=== PATIENT | female | born 1940 | race Caucasian/White ===

== ENCOUNTER → 2023-12-02 12:11 | Outpatient (REF) | payer MEDICARE, BC, SELFPAY ==
[2023-12-02 13:52] LABS: Free T4 0.78 ng/dl (0.78-2.19)
== END ==
LOC: REG 12:11
PROVIDERS: ATTENDING PHYSICIAN Internal Medicine Endocrinology, Diabetes & Metabolism
DX: E03.9 Hypothyroidism, unspecified (principal)
CPT/HCPCS: 36415; 84439; 84443

== ENCOUNTER → 2024-03-30 11:30 | Outpatient (REF) | payer MEDICARE, BC, SELFPAY ==
[2024-03-30 13:57] LABS: Free T4 0.77 ng/dl (0.78-2.19)
== END ==
LOC: REG 11:30
PROVIDERS: ATTENDING PHYSICIAN Internal Medicine Endocrinology, Diabetes & Metabolism; FAMILY PHYSICIAN Family Medicine
DX: E03.9 Hypothyroidism, unspecified (principal)
CPT/HCPCS: 36415; 84439; 84443

== ENCOUNTER → 2024-09-22 11:22 | Outpatient (REF) | payer MEDICARE, BC, SELFPAY ==
[2024-09-22 14:07] LABS: HDL Cholesterol 94 mg/dl; LDL Cholesterol, Calculated 105 mg/dl; Total Cholesterol 218 mg/dl (50-199); Triglyceride 95 mg/dl (10-149); Very Low Density Lipoprotein 19 mg/dl (0-30)
[2024-09-22 14:18] LABS: Free T4 0.75 ng/dl (0.78-2.19)
== END ==
LOC: REG 11:22
PROVIDERS: ATTENDING PHYSICIAN Internal Medicine Endocrinology, Diabetes & Metabolism
DX: E03.9 Hypothyroidism, unspecified (principal)
CPT/HCPCS: 36415; 80061; 84439; 84443

== ENCOUNTER → 2025-03-29 10:16 | Outpatient (REF) | payer MEDICARE, BC, SELFPAY ==
[2025-03-29 12:36] LABS: ALT (SGPT) 17 U/L (0-35); AST (SGOT) 24 U/L (14-36); Albumin 4.4 g/dl (3.5-5.0); Alkaline Phosphatase 100 U/L (38-126); Blood Urea Nitrogen 30 mg/dl (7-17); Calcium 9.7 mg/dl (8.4-10.2); Carbon Dioxide 29 mmol/L (22-30); Chloride 106 mmol/L (98-107); Glucose 100 mg/dl (70-99); HDL Cholesterol 84 mg/dl; LDL Cholesterol, Calculated 114 mg/dl; Sodium 141 mmol/L (135-145); Total Bilirubin 1.1 mg/dl (0.2-1.3); Total Cholesterol 214 mg/dl (50-199); Total Protein 7.3 g/dl (6.3-8.2); Triglyceride 82 mg/dl (10-149); Very Low Density Lipoprotein 16 mg/dl (0-30); eGFR 49.86
[2025-03-29 12:47] LABS: Free T4 0.87 ng/dl (0.78-2.19)
== END ==
LOC: REG 10:16
PROVIDERS: ATTENDING PHYSICIAN Internal Medicine Endocrinology, Diabetes & Metabolism; FAMILY PHYSICIAN Family Medicine
DX: E03.9 Hypothyroidism, unspecified (principal)
CPT/HCPCS: 36415; 80053; 80061; 84439; 84443

== ENCOUNTER → 2025-05-24 11:15 | Outpatient (REF) | payer MEDICARE, BC, SELFPAY ==
[2025-05-24 12:38] LABS: TSH 28.60 uIU/ml (0.47-4.68)
== END ==
LOC: REG 11:15
PROVIDERS: ATTENDING PHYSICIAN Internal Medicine Endocrinology, Diabetes & Metabolism; FAMILY PHYSICIAN Family Medicine
DX: E03.9 Hypothyroidism, unspecified (principal)
CPT/HCPCS: 36415; 84439; 84443

== ENCOUNTER 2025-08-08 14:45 | Emergency (ER) | payer MEDICARE, BC, SELFPAY ==
[2025-08-08 14:49] VITALS: BP 177/80
[2025-08-08 15:15] LABS: Hematocrit 34.7 % (37.0-47.0); Hemoglobin 11.4 g/dL (12.0-16.0); Mean Corp Hgb Conc. 32.9 g/dL (33.0-37.0); Mean Corpuscular Volume 94.8 fL (81.0-99.0); Nucleated Red Blood Cells % 0 %; Platelet Count 182 10^3/uL (130-400); Red Cell Dist. Width 11.8 % (11.5-14.5)
[2025-08-08 15:37] LABS: ALT (SGPT) 20 U/L (0-35); AST (SGOT) 32 U/L (14-36); Albumin 4.3 g/dl (3.5-5.0); Alkaline Phosphatase 71 U/L (38-126); Blood Urea Nitrogen 27 mg/dl (7-17); Calcium 9.1 mg/dl (8.4-10.2); Carbon Dioxide 28 mmol/L (22-30); Chloride 104 mmol/L (98-107); Glucose 133 mg/dl (70-99); Potassium 4.1 mmol/L (3.5-5.1); Sodium 138 mmol/L (135-145); Total Protein 7.0 g/dl (6.3-8.2); eGFR 55.90
--- NOTE | 2025-08-08 17:56 | ED.GENMED ---
History of Present Illness
General
Chief Complaint: Fainting/Passed Out
Source: patient
Exam Limitations: none
Time Seen by Provider: 08/08/25 17:43
History of Present Illness
History of Present Illness:
85 year old female presents after syncopal episode she sustained today. She was standing in the heat cutting her grandchild's hair for over half hour started to feel lightheaded her daughter guided her to that she let her down and then she passed
out. She woke up with a significant headache and nausea. There is no chest pain. No shortness of breath. No vomiting. She denies any vision change. She has had syncopal episodes in the past without any significant findings on workup by
cardiology. She has been told she has history of vasovagal events.
Past History
Past History
ED Past Medical History: Other (arthritis)
ED Past Surgical History: None
Social History
Tobacco: Non-smoker
Alcohol: None
Drug: None
Personal:
Living: alone
Family History
Family History: Negative CAD or Sudden
Phy Exam
Physical Exam
Physical Exam:
General: Well-appearing female no acute respiratory distress
HEENT: Normal cephalic atraumatic pupils equal round reactive to light
Heart: RRR, no murmus
Lungs: CTA bilaterally
Abd: Soft, nontender
Neurologic exam: Alert and oriented no facial asymmetry good strength to the upper and lower extremities conversing appropriately
Skin is warm no rash
Course
Orders/Labs/Results
Orders:
Orders
08/08/25 14:52
ECG [Electrocardiogram (*1)] Urgent
Reason for Study: Syncope
EKG- Treatment ONCE
08/08/25 14:59
Complete Blood Count/With Diff Urgent
Comprehensive Metabolic Panel Urgent
Free T4 Urgent
TSH Reflex To Free T4 Urgent
08/08/25 17:54
Cardiac Monitoring- Treatment ONCE
0.9% Sodium Chloride 1000 ml [Nss] 1,000 ml IV BOLUS
08/08/25 17:55
CT Head W/o Iv Contrast Urgent
Comment:
Reason For Exam: headache, syncope
Abnormal Lab Results
08/08/25
14:59
RBC 3.66 L 10^6/uL
(4.20-5.40)
Hgb 11.4 L g/dL
(12.0-16.0)
Hct 34.7 L %
(37.0-47.0)
MCH 31.1 H pg
(27.0-31.0)
MCHC 32.9 L g/dL
(33.0-37.0)
BUN 27 H mg/dl
(7-17)
Glucose 133 H mg/dl
(70-99)
TSH (Reflex) 55.50 H uIU/ml
(0.47-4.68)
08/08/25 14:59
08/08/25 14:59
Vital Signs
Initial and Last Documented VS:
Initial Vital Signs
Temp Pulse Resp BP Pulse Ox
97.7 F 67 18 177/80 99
08/08/25 14:49 08/08/25 14:49 08/08/25 14:49 08/08/25 14:49 08/08/25 14:49
Last Documented Vital Signs
Temp Pulse Resp BP Pulse Ox
97.7 F 77 17 164/73 100
08/08/25 14:49 08/08/25 18:30 08/08/25 18:30 08/08/25 18:12 08/08/25 18:30
MDM/Problems Addressed
Differential Diagnosis Includes:
Patient had syncopal episode today but woke up with significant headache and nausea. Since waiting in the waiting room her headache and nausea has improved but she still feels off. EKG through triage shows sinus rhythm without ischemic changes.
Labs showed BUN of 27 suggest possible volume depletion or dehydration. Hemoglobin is 11.4. [address] on monitor. Given the headache and nausea associate with syncope CT head was ordered
*Pulse Oximetry
SaO2: 99
Oxygen Mode of Delivery: Room air
Patient hypoxic: no
*Critical Care Note
Total Time (30-74mins, 75-104mins- exclusive of procedures): Not Applicable
Update Note
Update Note:
Patient appears well feels better upon reassessment labs reviewed without significant finding. CT of the head normal. She has been ambulatory without any lightheadedness chest pain and no arrhythmias on the monitor. I suspect heat exhaustion
mixed with vasovagal episode. Stable for discharge
ED Attending Note
-
Portions of this chart may have been created with voice recognition software.� Occasional wrong word or��sound alike� substitutions may have occurred due to the inherent limitations of voice recognition software.
Discharge Plan
Departure
Patient Disposition: Home (Routine Discharge)
Date of Disposition: 08/08/25
Time of Disposition: 19:45
Patient with high blood pressure during this ER visit?: No
Discharge Problem:
Syncope
Instructions: Syncope (Fainting) (DC)
Prescriptions:
No Action
cyclobenzaprine 10 MG tablet
5 mg PO HS PRN (Reason: neck pain, spasm) Qty: 8 0RF
Referrals:
Dennis Frank DO [Family Provider, Family Practice]
Activity Restrictions/Additional Instructions:
Stay hydrated. Return if worse otherwise follow-up with your doctor
Interventions
Interventions:
*Risk Screen - Suicide Last Done: 08/08/25 14:49
*General Assessment Last Done: 08/08/25 14:49
*Neglect/Abuse Screening Last Done: 08/08/25 18:45
*ED COVID-19 Vaccine History Last Done: 08/08/25 18:45
*ED Influenza Vaccine History Last Done: 08/08/25 18:45
ED- Cardiac Assessment Last Done: 08/08/25 18:45
ED- Neurological Assessment Last Done: 08/08/25 18:45
Discharge Date and Time
Print Language: BRUNEIAN
[2025-08-08 18:12] VITALS: BP 164/73
[2025-08-08] MEDS: NSS 1000 IV (18:29)
== END 2025-08-08 19:59 | disposition home or self-care (01) ==
LOC: EMR 14:45
PROVIDERS: Emergency Medicine; EMERGENCY PHYSICIAN Emergency Medicine; FAMILY PHYSICIAN Family Medicine
DX: R55 Syncope and collapse (principal); M19.90 Unspecified osteoarthritis, unspecified site
CPT/HCPCS: 99284; 96360; 70450; 80053; 84439; 84443; 85025; 93005

== ENCOUNTER → 2025-09-26 11:26 | Outpatient (REF) | payer MEDICARE, BC, SELFPAY ==
[2025-09-26 13:27] LABS: TSH 25.80 uIU/ml (0.47-4.68)
== END ==
LOC: REG 11:26
PROVIDERS: ATTENDING PHYSICIAN Internal Medicine Endocrinology, Diabetes & Metabolism; FAMILY PHYSICIAN Family Medicine
DX: E03.9 Hypothyroidism, unspecified (principal)
CPT/HCPCS: 36415; 84439; 84443

== ENCOUNTER → 2025-10-10 12:14 | Outpatient (REF) | payer MEDICARE, BC, SELFPAY | LOC: SDSPAT 12:14 | PROVIDERS: ATTENDING PHYSICIAN Internal Medicine Cardiovascular Disease; FAMILY PHYSICIAN Family Medicine | DX: R55 Syncope and collapse (principal) | CPT/HCPCS: 93005 ==

== ENCOUNTER → 2025-10-13 12:56 | Outpatient (REF) | payer MEDICARE, BC, SELFPAY | LOC: RCS 12:56 | PROVIDERS: ATTENDING PHYSICIAN Internal Medicine Cardiovascular Disease; FAMILY PHYSICIAN Family Medicine | DX: R55 Syncope and collapse (principal) | CPT/HCPCS: 93306 ==

== ENCOUNTER 2025-10-17 06:51 | Day surgery (SDC) | payer MEDICARE, BC, SELFPAY ==
[2025-10-10 13:04] VITALS: BMI 21.5
--- NOTE | 2025-10-17 08:12 | ITS.CL.IMPLP ---
Hr Operations Advisor - Implant Loop
Implant Loop
Procedure Report:
Date of Procedure: October 17, 2025.
Procedure: Insertable Loop Recorder Implant.
Indication: Unexplained recurrent syncope.
Performing physician: Javi Loyola MD, [facility].
Implant: [employer]; Reveal LINQII; Model# [id number]; Serial# [id number].
Technique: The patient was prepped and draped in the usual fashion. A time-out was performed. No intravenous sedation was administered. Local anesthetic was applied to the left pre-pectoral subcutaneous tissue. Using the insertion kit an incision
was made left of the midline in the fourth intercostal space and the device was implanted subcutaneously and directed towards the nipple. Hemostasis was excellent. The skin was closed with steri-strips. The estimated blood loss was less than 0.5 ml.
There were no complications. No fluoroscopy. R waves measured 0.8 mV and P waves were visible.
Final Programming: Detections: Afib, tachy at 160 bpm, jonathan at 30 bpm, pause at 3 sec.
Conclusion: Uncomplicated insertable loop implant.
Recommendation: Routine post-insertable loop care. The device is MRI conditional without a waiting period and up to 3 Patricia.
cc: Dennis Frank MD.
== END 2025-10-17 08:33 | disposition home or self-care (01) ==
LOC: CATH 06:51
PROVIDERS: ATTENDING PHYSICIAN Internal Medicine Cardiovascular Disease; FAMILY PHYSICIAN Family Medicine
DX: Z09 Encounter for follow-up examination after completed treatment for conditions other than malignant neoplasm (principal); M48.07 Spinal stenosis, lumbosacral region; R55 Syncope and collapse; E03.9 Hypothyroidism, unspecified; I08.1 Rheumatic disorders of both mitral and tricuspid valves; K76.0 Fatty (change of) liver, not elsewhere classified; K90.0 Celiac disease; M19.90 Unspecified osteoarthritis, unspecified site; M81.0 Age-related osteoporosis without current pathological fracture; Z79.890 Hormone replacement therapy; Z88.1 Allergy status to other antibiotic agents; Z98.51 Tubal ligation status; K57.90 Diverticulosis of intestine, part unspecified, without perforation or abscess without bleeding; K86.2 Cyst of pancreas; M54.17 Radiculopathy, lumbosacral region; H04.129 Dry eye syndrome of unspecified lacrimal gland
CPT/HCPCS: 33285; C1764